=== PATIENT | male | born 1990 | race Caucasian/White ===

== ENCOUNTER 2023-04-29 16:37 | Emergency (ER) | payer OTHER, SELFPAY ==
[2023-04-29 16:44] VITALS: BP 145/75; PULSE 123; RESP 20; TEMP 37.2; O2SAT 100
--- NOTE | 2023-04-29 17:03 | ED.ABDPAIN ---
HPI - Abdominal Pain General Chief Complaint: Abdominal Pain Stated Complaint: Abdominal Pain Time Seen by Provider: 04/29/23 16:58 Source: patient, RN notes reviewed and old records reviewed Mode of arrival: ambulatory Limitations: no limitations History of Present Illness HPI narrative: 32 year old male accompanied by girlfriend with complaints of lower abdominal pain for the past 2 days. Patient reports that he has history of constipation in the past so he took a laxative and enema and had good results and felt better. He reports pain retuned this morning and has intensified throughout day. He reports about 1130 took laxative and enema with small amount of results but pain didn't resolve. Patient reports pain is more on the right lower abdomen with noted McBurney point tenderness on examination bowel sounds decreased. Patient has last eaten at 0900 and has had nausea but no vomiting small amount of diarrhea. MD elicited complaint: abdominal pain (RLQ) Pertinent past history: constipation Onset (ago): day(s) (2) Pain Consistency: colicky (constant since this morning) Location: RLQ Pain scale (0-10): 8 Treatments prior to arrival: other (laxatives and enema) Related Data Home Medications Medication Instructions Recorded Confirmed No Home Medications 04/29/23 04/29/23 Allergies Allergy/AdvReac Type Severity Reaction Status Date / Time No Known Allergies Allergy Verified 04/29/23 16:59 Review of Systems Review of Systems: CONSTITUTIONAL: fever, chills, or sweats. ENT: Denies rhinorrhea, congestion, sore throat, or otalgia. CARDIOVASCULAR: Denies chest pain, palpitations, or edema. RESPIRATORY: Denies cough or dyspnea. GASTROINTESTINAL: Reports right lower abdominal pain, nausea, no vomiting, reports some constipation and small amount of diarrhea but has taken laxatives GENITOURINARY: Denies dysuria or hematuria. SKIN: Denies rash or itching. MUSCULOSKELETAL: Denies back pain, joint pain, or myalgia. NEUROLOGIC: Denies headache, numbness, or weakness. All systems reviewed & are unremarkable except as noted in HPI and below PMFSH Past Medical History Medical History No active medical problems Surgical History Surgical History (Updated 04/30/23 @ 09:33 by TRACI Obregon) History of foot surgery Family History Family History Mother Asthma Hypertension Grandparent Cerebrovascular accident Diabetes mellitus Hypertension Father Hypertension Sibling Hypertension Social History Social History Smoking status: Never smoker Alcohol intake: never Substance use: never Lack of Transportation: No Lack of Food: Never True Current Housing: I Have Housing Concerned About Future Housing: No Difficulty Paying Gas/Electric Bills: No Difficulty Paying for Meds: No Currently Unemployed: No Education: High School Diploma/GED Difficulty w/ Childcare or Family Care: No Spiritual care concerns: No Comments At time of signature, agree with nursing past medical, surgical, social and family history. There is no relevant family history pertinent to the presenting complaint Exam Narrative: GENERAL: Well-appearing, well-nourished, and in some acute distress. HEAD: Normocephalic, atraumatic. EYES: PERRLA, conjunctivae clear, and EOMI. ENT: Nares clear. Mucous membranes moist. Oropharynx without edema, erythema, or lesions. Tonsils not enlarged and without exudate. NECK: Supple. No lymphadenopathy CHEST: Speaks in full sentences. No respiratory distress.SAO2 100% on room air HEART: Regular rate and rhythm. ABDOMEN: Soft, flat, distended. positive for guarding, rebound tenderness, no rigid. No pulsatilla masses. Bowel sounds decreased in all four quadrants. No organomegaly. Negative Cortés?s sign. No perium
== END 2023-04-29 17:18 | disposition short-term general hospital (02) ==
PROVIDERS: Emergency Provider Registered Nurse
DX: R10.31 Right lower quadrant pain (principal)
CPT/HCPCS: 99202; G0463

== ENCOUNTER 2023-04-29 17:59 | Inpatient (IN) | payer OTHER, SELFPAY ==
[2023-04-29] VITALS (8 sets, daily range): BP systolic 107–146; BP diastolic 55–82; PULSE 114–122; RESP 16–20; TEMP 37.9–38.4; O2SAT 97–100
--- NOTE | ~2023-04-29 | CT_ITS ---
EXAMINATION: CT abdomen pelvis w con DATE: 04/29/2023 20:22 INDICATION: Right lower quadrant abdominal pain. Fever. TECHNIQUE: Computed tomography (CT) of the abdomen and pelvis was performed with 100 mL Omnipaque 350 intravenous contrast. Automated exposure control and iterative reconstruction technique were employe d. The dose-length product was 764.57 mGy-cm. COMPARISON: None. FINDINGS: The visualized portions of the lung bases demonstrate mild atelectasis in right lower lobe. No pleural effusion. The heart size is normal. No pericardial effusion. The liver, gallbladder, sple en, pancreas, adrenal glands, and kidneys are normal. There are appendicoliths in the appendix, which is fluid-filled and dilated to 18 mm with surrounding fat stranding, consistent with appendicitis. T here is a small volume of ascites in the right paracolic gutter and in the pelvis. There are no patho logically enlarged lymph nodes. There is chronic anterior wedging of multiple vertebral bodies. There is mild thoracic and lumbar spondylosis. IMPRESSION: 1. Acute appendicitis. 2. Small volume of ascites. Reviewed, dictated and finalized at location E.
--- NOTE | 2023-04-29 19:25 | ED.ABDPAIN ---
HPI - Abdominal Pain General Chief Complaint: Abdominal Pain <Nila Lancaster PA-C - Last Filed: 04/29/23 21:11> Stated Complaint: RLQ pain <KAREN Silva Last Filed: 04/29/23 21:11> Time Seen by Provider: 04/29/23 19:19 <Nila Lancaster PA-C - Last Filed: 04/29/23 21:11> Source: patient <KAREN Silva Last Filed: 04/29/23 21:11> Mode of arrival: ambulatory <KAREN Silva Last Filed: 04/29/23 21:11> Limitations: no limitations <KAREN Silva Last Filed: 04/29/23 21:11> History of Present Illness HPI narrative: This is a 32-year-old male that presents to the emergency department with right lower quadrant abdominal pain. Reports starting on Saturday he was having some mid abdominal pain. This is now localized more to the right lower quadrant. Reports associated nausea. Reports he has been taking some laxatives so has had a little diarrhea. Noted to be febrile today. Denies vomiting, dysuria, or hematuria. <KAREN Silva Last Filed: 04/29/23 21:11> Related Data Allergies/Adverse Reactions: Allergies Allergy/AdvReac Type Severity Reaction Status Date / Time No Known Allergies Allergy Verified 04/29/23 16:59 <Nila Lancaster PA-C - Last Filed: 04/29/23 21:11> Review of Systems Review of Systems: CONSTITUTIONAL: Reports fever GASTROINTESTINAL: Reports abdominal pain, nausea, and diarrhea. Denies vomiting GENITOURINARY: Denies dysuria or hematuria. <KAREN Sliva Last Filed: 04/29/23 21:11> All systems reviewed & are unremarkable except as noted in HPI and below <Nila Lancaster PA-C - Last Filed: 04/29/23 21:11> PMFSH Past Medical History Medical History: Medical History No active medical problems <Nila Lancaster PA-C - Last Filed: 04/29/23 21:11> Surgical History Surgical History: Surgical History (Updated 04/30/23 @ 09:33 by TRACI Obregon) History of foot surgery <Nila Lancaster PA-C - Last Filed: 04/29/23 21:11> Family History Family History: Family History Mother Asthma Hypertension Grandparent Cerebrovascular accident Diabetes mellitus Hypertension Father Hypertension Sibling Hypertension <Nila Lancaster PA-C - Last Filed: 04/29/23 21:11> Social History Social History: Social History Smoking status: Never smoker Alcohol intake: never Substance use: never Lack of Transportation: No Lack of Food: Never True Current Housing: I Have Housing Concerned About Future Housing: No Difficulty Paying Gas/Electric Bills: No Difficulty Paying for Meds: No Currently Unemployed: No Education: High School Diploma/GED Difficulty w/ Childcare or Family Care: No Spiritual care concerns: No <Nila Lancaster PA-C - Last Filed: 04/29/23 21:11> Exam Narrative: GENERAL: Well-appearing, well-nourished, and in no acute distress. HEAD: Normocephalic, atraumatic. EYES: EOMI. CHEST: Clear to auscultation. No respiratory distress. No wheezes rales or rhonchi HEART: Regular rate and rhythm. No murmur heard. Normal peripheral pulses. ABDOMEN: Soft, nondistended, normal active bowel sounds. Tender to palpation in the right lower quadrant, without guarding. No CVA tenderness EXTREMITIES: Normal range of motion. No edema. SKIN: Warm, dry, no rash. NEURO: No focal deficits. Alert and oriented x3. PSYCH: Normal mood and affect <Nila Lancaster PA-C - Last Filed: 04/29/23 21:11> Course Course Emergency Course: Patient was updated on work-up and need for admission <Nila Lancaster PA-C - Last Filed: 04/29/23 21:11> INFECTION CONTROL PRACTITIONER/PA Physician Supervision For this patient encounter, I reviewed the INFECTION CONTROL PRACTITIONER or PA documentation, treatment plan, and medical decision making and
[2023-04-29] MEDS: SODIUM CHLORIDE 0.9% IV 1,000 ML 999 ML IV CONT ×3 (19:42→21:56)
[2023-04-29 19:51] LABS: Hematocrit 50.5 % (42.0-52.0); Hemoglobin 17.7 g/dL (14.0-18.0); Mean Corpuscular Hemoglobin 30.8 pg (26-34); Platelet Count Result 227 k/mm3 (150-375); Red Blood Count 5.74 M/mm3 (4.6-6.20); Red Cell Distribution Width 12.2 % (11.5-14.5); White Blood Count 21.9 K/mm3 (4.5-10.0)
[2023-04-29] MEDS: PIPERACILLN/TAZ 3.375GM/NS50ML 3.375 GM/50 ML BAG IVPB (20:03)
[2023-04-29 20:05] LABS: Alanine Aminotransferase 28 U/L (6-50); Albumin Level 4.9 g/dL (3.5-5.1); Alkaline Phosphatase 76 U/L (38-126); Anion Gap 12 mmol/L (8-16); Aspartate Amino Transferase 27 U/L (17-59); Bilirubin,Total 0.8 mg/dL (0.2-1.3); Blood Urea Nitrogen 17 mg/dL (9-20); Calcium 9.6 mg/dL (8.4-10.2); Carbon Dioxide 27 mmol/L (22-30); Chloride 98 mmol/L (98-107); Estimated CRCL calculation 109 ml/min; Estimated Glomerular Filt Rate > 60; Glucose 131 mg/dL (65-110); Lipase 104 U/L (23-300); Potassium 3.9 mmol/L (3.4-5.0); Sodium 137 mmol/L (137-145)
[2023-04-29 20:06] LABS: Lactic Acid Reflex 2.4 mmol/L (0.7-2.0)
[2023-04-29 20:27] LABS: Band Neutrophils Percent 1 % (0-6); Lymphocytes Absolute Manual 1.09 K/mm3 (1.1-4.5); Monocytes Absolute Manual 1.53 K/mm3 (0.1-0.90); Monocytes Percent Manual 7 % (3-9); Neutrophils Absolute Manual 19.27 K/mm3 (1.3-6.7); Neutrophils Percent Manual 87 % (46-73); Platelet Estimate Adequate (Adequate); Total Cells Counted 100
[2023-04-29 20:28] LABS: Schistocytes None Seen (NORMAL)
[2023-04-29] MEDS: IBUPROFEN IV 400 MG in SODIUM CHLORIDE 0.9% IV 100 ML 200 MG IVPB (20:34)
[2023-04-29 20:47] LABS: Appearance Urine Clear (Clear); Bacteria Urine None Seen /hpf; Bilirubin Urine 1+ (Negative); Color Urine Dark Yellow (Yellow); Glucose Urine UA Negative (Negative); Ketones Urine Trace mg/dL (Negative); Leukocyte Esterase Ur Trace LEU/UL (Negative); Nitrate Urine Negative (Negative); Non Pathogenic Casts 0-2; Protein Urine 1+ mg/dL (Negative); Specific Grav Ur 1.033 (1.001-1.035); Squamous Epithelial Cell Urine None seen /hpf (Few); Urobilinogen Urine 0.2 mg/dL (<2.0); WBC Urine 0-5 /hpf
[2023-04-29 20:57] LABS: Add Urine Microscopic? YES
[2023-04-29] MEDS: SODIUM CHLORIDE 0.9% IV 1,000 ML 125 ML IV CONT (22:00)
--- NOTE | 2023-04-29 22:15 | ADMGEN ---
This patient, Fritz Capone, was admitted to Medical Room 342-01. Patient/family oriented to hospital policies and general routines including ID bracelet, bed and alarms, visiting hours, pain management, procedures, bathroom and other care routines, personal items, smoking policy, room service/diet, and visiting hours. Information on how to activate the Rapid Response Team has been discussed. Patient/Family are encouraged to report perceived risks to care and to ask questions if they do not understand what they are told or what they should do.
[2023-04-29 22:48] LABS: Reflex Lactic Acid Yes or No Add Lactic
[2023-04-29 23:21] LABS: Lactic Acid 2.2 mmol/L (0.7-2.0)
[2023-04-30] VITALS (21 sets, daily range): BP systolic 106–154; BP diastolic 41–82; PULSE 95–128; RESP 14–20; TEMP 36.5–38.4; O2SAT 93–100
[2023-04-30] MEDS: PIPERACILLN/TAZ 3.375GM/NS50ML 3.375 GM/50 ML BAG IVPB ×4 (00:54→19:25)
[2023-04-30] MEDS: ACETAMINOPHEN 325 MG TABLET 650 MG PO (00:57)
[2023-04-30] MEDS: SODIUM CHLORIDE 0.9% IV 1,000 ML 125 ML IV CONT ×2 (05:07→18:15)
[2023-04-30] MEDS: IBUPROFEN IV 400 MG in SODIUM CHLORIDE 0.9% IV 100 ML 208 MG IVPB ×2 (05:12→20:04)
--- NOTE | 2023-04-30 09:28 | PM.IMHP ---
H&P: HPI History of Present Illness Date/Time: 04/30/23 09:28 Chief Complaint: Periumbilical abdominal pain Narrative: This is a 32-year-old man who presented to the ER last night with complaints of periumbilical abdominal pain for 3 days. He woke up with mild pain Saturday morning. Initially, he thought he was constipated. He typically deals with constipation and his pain improves after taking some laxatives and moving his bowels. He tried this and did not have any relief in his pain. His abdominal pain was aggravated by bending over and any movement. He developed some chills yesterday morning, but did not take his temperature. He also has had some mild nausea with poor appetite, but no vomiting. Last night, his abdominal pain began to localize to the right lower quadrant. He presented to the ER for further evaluation. Labs showed a white blood cell count 21,900. Lactic acid 2.[address] scan of the abdomen and pelvis showed acute appendicitis with small volume of ascites. He was found to be tachycardic and febrile. He was given 3 L of IV fluids for IV fluid resuscitation in the ER. Blood cultures were drawn and he was started on IV Zosyn. The patient was admitted to our service for surgical evaluation of acute appendicitis. His heart rate has improved. He has been given Tylenol and ibuprofen and is now afebrile this morning. No previous abdominal surgeries. Review of Systems Review of Systems: All systems reviewed & are unremarkable except as noted in HPI and below PMFSH Past Medical History Medical History No active medical problems Surgical History Surgical History (Updated 04/30/23 @ 09:33 by TRACI Obregon) History of foot surgery Family History Family History Mother Asthma Hypertension Grandparent Cerebrovascular accident Diabetes mellitus Hypertension Father Hypertension Sibling Hypertension Social History Social History Smoking status: Never smoker Alcohol intake: never Substance use: never Lack of Transportation: No Lack of Food: Never True Current Housing: I Have Housing Concerned About Future Housing: No Difficulty Paying Gas/Electric Bills: No Difficulty Paying for Meds: No Currently Unemployed: No Education: High School Diploma/GED Difficulty w/ Childcare or Family Care: No Spiritual care concerns: No Meds Home Medications and Allergies Home Medications Medication Instructions Recorded Confirmed Type No Home Medications 04/29/23 04/29/23 History Allergies Allergy/AdvReac Type Severity Reaction Status Date / Time No Known Allergies Allergy Verified 04/29/23 16:59 Vital Signs Vital Signs - 24 hr 04/29/23 19:03 04/29/23 19:15 04/29/23 19:16 Temperature 101.2 F H 100.8 F H Pulse Rate 122 H 120 H 121 H Respiratory Rate 18 17 16 Blood Pressure 121/67 142/82 H 145/82 H Pulse Oximetry 97 98 97 Oxygen Delivery Room Air Room Air 04/29/23 20:01 04/29/23 21:06 04/29/23 21:56 Temperature Pulse Rate 116 H 117 H 114 H Respiratory Rate 18 20 17 Blood Pressure 146/76 H 109/62 107/55 L Pulse Oximetry 100 100 98 Oxygen Delivery 04/29/23 22:24 04/29/23 22:12 04/29/23 23:11 Temperature 100.6 F H 100.3 F H Pulse Rate 121 H Respiratory Rate 18 Blood Pressure 118/55 L Pulse Oximetry 99 Oxygen Delivery Room Air 04/30/23 00:00 04/30/23 00:57 04/30/23 03:00 Temperature 100.3 F H Pulse Rate 128 H 119 H Respiratory Rate Blood Pressure Pulse Oximetry Oxygen Delivery 04/30/23 04:00 04/30/23 05:49 04/30/23 09:05 Temperature 99.5 F 98.6 F Pulse Rate 115 H 117 H 113 H Respiratory Rate 16 18 Blood Pressure 109/41 L 116/72 Pulse Oximetry 98 97 Oxygen Delivery Exam Const: General: comfortable, no
[2023-04-30 10:13] LABS: Hematocrit 42.8 % (42.0-52.0); Hemoglobin 14.4 g/dL (14.0-18.0); Mean Corpuscular HGB Conc 33.6 g/dl (32-36); Mean Corpuscular Hemoglobin 30.3 pg (26-34); Mean Corpuscular Volume 90.1 fl (80-100); Mean Platelet Volume 9.6 fl (7.4-10.4); Platelet Count Result 148 k/mm3 (150-375); Red Blood Count 4.75 M/mm3 (4.6-6.20); Red Cell Distribution Width 12.3 % (11.5-14.5); White Blood Count 21.1 K/mm3 (4.5-10.0)
[2023-04-30 10:22] LABS: Lactic Acid Reflex 1.2 mmol/L (0.7-2.0)
--- NOTE | 2023-04-30 11:55 | PC.NURSE ---
Patient transferred to pre-op via stretcher at 1155
--- NOTE | 2023-04-30 12:18 | WPDANESEPPF ---
Anes - Initial Pre Proc Eval Procedure: Operation Date: 04/30/23 13:00 Proposed Procedures p Laparoscopic Appendectomy - Dorie Cheema MD Date/Time: 04/30/23 12:18 Surgeon: Dorie Cheema MD Pre Op Diagnosis: Acute Appendicitis Patient Data Age: 32 Gender: M Height: 1.73 m Weight: 101.6 kg Last Vital Signs Temp 98.6 F 04/30/23 09:05 Pulse 113 H 04/30/23 09:05 Resp 18 04/30/23 09:05 BP 116/72 04/30/23 09:05 Pulse Ox 97 04/30/23 09:05 O2 Del Method Room Air 04/29/23 22:24 Allergies Allergy/AdvReac Type Severity Reaction Status Date / Time No Known Allergies Allergy Verified 04/29/23 16:59 Home Medications Medication Instructions Recorded Confirmed Type No Home Medications 04/29/23 04/29/23 History Laboratory Tests 04/29/23 04/29/23 04/29/23 19:42 20:00 23:01 WBC 21.9 H K/mm3 (4.5-10.0) RBC 5.74 M/mm3 (4.6-6.20) Hgb 17.7 g/dL (14.0-18.0) Hct 50.5 % (42.0-52.0) MCV 88.0 fl (80-100) MCH 30.8 pg (26-34) MCHC 35.0 g/dl (32-36) RDW 12.2 % (11.5-14.5) Plt Count 227 k/mm3 (150-375) MPV 10.0 fl (7.4-10.4) Immature Gran % (Auto) Not Reportable Neut % (Auto) Not Reportable Lymph % (Auto) Not Reportable Ballard % (Auto) Not Reportable Eos % (Auto) Not Reportable Baso % (Auto) Not Reportable Lymph # (Auto) Not Reportable Ballard # (Auto) Not Reportable Eos # (Auto) Not Reportable Baso # (Auto) Not Reportable Abs Immat Gran (auto) Not Reportable Absolute Neuts (auto) Not Reportable Absolute Nucleated RBC Not Reportable Total Counted 100 Neutrophils % (Manual) 87 H % (46-73) Band Neutrophils % 1 % (0-6) Lymphocytes % (Manual) 5.0 L % (18-44) Monocytes % (Manual) 7 % (3-9) Nucleated RBC % Not Reportable Abs Neuts (Manual) 19.27 H K/mm3 (1.3-6.7) Abs Lymphs (Manual) 1.09 L K/mm3 (1.1-4.5) Abs Monocytes (Manual) 1.53 H K/mm3 (0.1-0.90) Platelet Estimate Adequate (Adequate) Schistocytes None seen (NORMAL) Sodium 137 mmol/L (137-145) Potassium 3.9 mmol/L (3.4-5.0) Chloride 98 mmol/L (98-107) Carbon Dioxide 27 mmol/L (22-30) Anion Gap 12 mmol/L (8-16) BUN 17 mg/dL (9-20) Creatinine 1.00 mg/dL (0.7-1.3) Estim Creat Clear Calc 109 ml/min Estimated GFR > 60 (59 - ) Glucose 131 H mg/dL (65-110) Lactic Acid 2.4 H mmol/L 2.2 H mmol/L (0.7-2.0) (0.7-2.0) Calcium 9.6 mg/dL (8.4-10.2) Total Bilirubin 0.8 mg/dL (0.2-1.3) AST 27 U/L (17-59) ALT 28 U/L (6-50) Alkaline Phosphatase 76 U/L (38-126) Total Protein 9.0 H g/dL (6.3-8.2) Albumin 4.9 g/dL (3.5-5.1) Lipase 104 U/L (23-300) Urine Color Dark yellow (Yellow) Urine Appearance Clear (Clear) Urine pH 7.0 (5.0-9.0) Ur Specific [place] 1.033 (1.001-1.035) Urine Protein 1+ H mg/dL (Negative) Urine Glucose (UA) Negative mg/dL (Negative) Urine Ketones Trace H mg/dL (Negative) Ur Blood (Man) Non-hemolyzed trace (Negative) Urine Nitrate Negative (Negative) Urine Bilirubin 1+ H (Negative) Urine Urobilinogen 0.2 mg/dL (<2.0) Leukocyte Esterase Rfl Trace H SARAHI/UL (Negative) Urine RBC 11-20 H /hpf (0-2) Urine WBC 0-5 /hpf Ur Squamous Epith Cells None seen /hpf (Few) Urine Bacteria None seen /hpf Urine Casts 0-2 04/30/23
[2023-04-30] MEDS: LACTATED RINGERS 1,000 ML 30 ML IV CONT ×2 (12:40→14:23)
--- NOTE | 2023-04-30 13:10 | WPDHPUPDATE1 ---
History and Physical Update Update Date/Time: 04/30/23 13:10 History and Physical has been reviewed, including an updated exam of the patient. There are NO changes in the patient's condition. Risks, benefits, and alternatives have been discussed and questions answered. Patient agrees to proceed with procedure.
[2023-04-30] MEDS: BUPIVACAINE/EPINEPHRINE 0.5% 50 ML VIAL 30 ML INFILTRATE (13:54)
--- NOTE | 2023-04-30 14:41 | W.PM.PROC2 ---
Procedure Note - Detailed Date of Procedure 04/30/23 Pre-op Diagnosis Acute Appendicitis Post-op Diagnosis Other (acute perforated appendicitis) Procedure Performed Laparoscopic appendectomy, drainage of intra-abdominal abscess Surgeon Dorie Cheema MD Anesthesia General Indications 32-year-old male presenting to the emergency department complaining of severe right lower quadrant abdominal pain. Workup in the emergency department, including imaging, was significant for acute appendicitis. Findings Acute perforated appendicitis with transection of the appendix near the base, intra-abdominal abscess in right lower quadrant, fecalith noted within abscess Description of Procedure The patient was taken to the operating room and placed in the supine position. After adequate induction of general anesthesia, the patient was prepped and draped in the normal sterile fashion. A time-out was then done to verify the patient's identity, as well as the procedure being performed. I began by making a 5 mm incision in the infraumbilical region, through this a Veress needle was placed in the peritoneal cavity. CO2 gas was then insufflated and after adequate pneumoperitoneum was achieved the Veress needle was removed. Then placed a 5 mm Optiview trocar under direct visualization into the peritoneal cavity. I then insufflated through this trocar site and the endoscope was placed into the trocar. Under direct visualization, placed 2 further 5 mm suprapubic port as well as an additional 12 mm port in the left lower abdomen. At this point identified the cecum, I retracted the cecum both medially and superiorly allowing me to expose the appendix. The appendix was noted to be very dilated and inflamed with noted perforation, transection at the base. There was an associated abscess near this area that tracked down to the pelvis. There was also noted to be large fecalith within this area. I copiously irrigated and drained this intra-abdominal abscess. The appendix was noted to be very adherent to the right lateral sidewall as well as the ileum. I was able to bluntly dissect the appendix from these adhesions. I then transected the mesoappendix with a white vascular staple load. The appendiceal specimen was completely detached at this point. There was a lot of inflammation in the cecum and I was not able to clearly identify the area of the transection. Of note, there was no drainage of colonic contents. Given these findings, the decision was made to leave a drain in this area. An endo-pouch was placed through the 12 mm port site and the specimen was removed through the endo-pouch. The appendiceal specimen will be sent to pathology for further review. I then copiously irrigated the right lower quadrant. Hemostasis was noted at the staple line and no other pathology was seen in this area. I then moved the camera to the suprapubic port to check our its port of entry. No iatrogenic injury or other pathology was noted in the upper abdomen. I then placed a 19 Estonian ANTONETTE drain in the right lower quadrant coming through the suprapubic port. I then closed the 12 mm port site with a Darrell code and 0 Vicryl suture under direct visualization. At this point, the abdomen was desufflated and all ports were removed. All port sites were closed with 4 Monocryl subcuticular suture. Dermabond was placed on all wounds. The patient tolerated the procedure well and was extubated in the operating room postop. He will be sent to the recovery room in stable condition. Estimated Blood Loss 25 Drains Yes Packing No Pathology Yes Complications No immediate complications Condition Stable Disposition PACU [facility] Billing Surgery - Charge Forward: Surgery Billing
[2023-04-30] MEDS: fentaNYL CITRATE INJ (*CRX) 100 MCG/2 ML VIAL 25 MCG IV PUSH ×6 (14:54→15:39)
--- NOTE | 2023-04-30 15:52 | PC.NURSE ---
Patient returned to room from PACU. Family at bedside
[2023-04-30] MEDS: HYDROcodone/acetaminophen (*CRX) 5-325 MG TABLET 1 TAB PO ×2 (18:14→22:23)
[2023-05-01] VITALS (7 sets, daily range): BP systolic 101–136; BP diastolic 57–70; PULSE 83–124; RESP 14–18; TEMP 36.1–36.8; O2SAT 98–100
[2023-05-01] MEDS: SODIUM CHLORIDE 0.9% IV 1,000 ML 125 ML IV CONT (00:56)
[2023-05-01] MEDS: PIPERACILLN/TAZ 3.375GM/NS50ML 3.375 GM/50 ML BAG IVPB ×4 (00:59→20:24)
[2023-05-01] MEDS: IBUPROFEN IV 400 MG in SODIUM CHLORIDE 0.9% IV 100 ML 208 MG IVPB (02:02)
[2023-05-01] MEDS: HYDROcodone/acetaminophen (*CRX) 5-325 MG TABLET 1 TAB PO ×2 (05:22→11:16)
[2023-05-01 05:52] LABS: Hematocrit 37.5 % (42.0-52.0); Hemoglobin 12.1 g/dL (14.0-18.0); Mean Corpuscular HGB Conc 32.3 g/dl (32-36); Mean Corpuscular Hemoglobin 30.2 pg (26-34); Mean Corpuscular Volume 93.5 fl (80-100); Mean Platelet Volume 10.1 fl (7.4-10.4); Platelet Count Result 148 k/mm3 (150-375); Red Blood Count 4.01 M/mm3 (4.6-6.20); Red Cell Distribution Width 12.6 % (11.5-14.5)
[2023-05-01 06:28] LABS: Anion Gap 9 mmol/L (8-16); Blood Urea Nitrogen 15 mg/dL (9-20); Calcium 7.9 mg/dL (8.4-10.2); Carbon Dioxide 27 mmol/L (22-30); Chloride 101 mmol/L (98-107); Estimated CRCL calculation 119 ml/min; Estimated Glomerular Filt Rate > 60; Glucose 121 mg/dL (65-110); Potassium 3.5 mmol/L (3.4-5.0); Sodium 137 mmol/L (137-145)
[2023-05-01] MEDS: IBUPROFEN IV 400 MG in SODIUM CHLORIDE 0.9% IV 100 ML 200 MG IVPB ×2 (09:14→21:56)
--- NOTE | 2023-05-01 10:19 | WPDANESPN ---
Anes - Prog Note Post-Op Date/Time: 05/01/23 10:19 Cardiovascular status: normal Respiratory status: normal Airway patency: baseline Mental status: baseline Post-Op hydration status: normal Vital Signs: Last Vital Signs Temp 97.7 F 05/01/23 04:00 Pulse 90 05/01/23 08:00 Resp 14 05/01/23 08:00 BP 101/58 L 05/01/23 04:00 Pulse Ox 98 05/01/23 08:00 O2 Del Method Room Air 05/01/23 08:00 O2 Flow Rate 6 04/30/23 15:05 Pain Score (VAS): 0 I/O: Intake & Output 04/30/23 05/01/23 05/01/23 23:59 07:59 15:59 Intake Total 394 2354 Output Total 125 505 Balance 269 1999 Laboratory Tests 05/01/23 05:17 05/01/23 05:17 04/30/23 05/01/23 10:07 05:17 WBC 21.1 H 17.0 H RBC 4.75 4.01 L Hgb 14.4 D 12.1 L Hct 42.8 37.5 L MCV 90.1 93.5 MCH 30.3 30.2 MCHC 33.6 32.3 RDW 12.3 12.6 Plt Count 148 L 148 L MPV 9.6 10.1 Sodium 137 Potassium 3.5 Chloride 101 Carbon Dioxide 27 Anion Gap 9 BUN 15 Creatinine 0.90 Estim Creat Clear Calc 119 Estimated GFR > 60 Glucose 121 H Lactic Acid 1.2 Calcium 7.9 L Microbiology 04/29/23 20:00 Blood Blood Culture - Preliminary Gram positive cocci cluster is 04/29/23 19:42 Blood Blood Culture - Preliminary Post-procedural complaints: none Patient Feedback: Patient satisfied with anesthetic care.
--- NOTE | 2023-05-01 14:54 | PM.PNGS ---
Progress Note: A&P Assessment and Plan (1) Acute appendicitis: Qualifiers: Acute appendicitis type: with localized peritonitis Appendicitis abscess presence: without abscess Appendicitis gangrene presence: without gangrene Appendicitis perforation presence: without perforation Qualified Code(s): K35.30 - Acute appendicitis with localized peritonitis, without perforation or gangrene Code(s): K35.80 - Unspecified acute appendicitis Status: Acute Assessment and Plan: S/p laparoscopic appendectomy, drainage of intra-abdominal abscess Continue IV Zosyn, WBC trending down to 17k today, repeat labs tomorrow Tolerating a regular diet Encouraged getting up to the chair and ambulating in the halls (2) Sepsis: Qualifiers: Sepsis acute organ dysfunction status: without acute organ dysfunction Sepsis type: sepsis due to unspecified organism Qualified Code(s): A41.9 - Sepsis, unspecified organism Code(s): A41.9 - Sepsis, unspecified organism Status: Acute Assessment and Plan: Tachycardia resolved, afebrile for over 24 hours, WBC trending down Preliminary blood cx showing gram positive cocci in clusters in 1/2 bottles. Consulted with the ID Pharmacist, will continue IV Zosyn for now and repeat blood cultures today, possibly a contaminant. Repeat labs tomorrow Plan I have discussed the patient's case and plan of care with Dr. Cheema. Subjective Subjective Date/Time Seen: 05/01/23 14:54 Post Op day: 1 (Laparoscopic appendectomy, drainage of intra-abdominal abscess) Patient reports: no flatus, no bowel movement and afebrile (Since noon yesterday) Interval history: Patient seen this afternoon. He is standing in the room. He reports feeling well throughout the day and ambulating in the halls multiple times today. He recently started having more lower abdominal pain then he has been having the rest the day. He reports this feels more like gas pains. Denies any nausea or vomiting. Feels very bloated. He is not passing flatus. Exam Const: General: comfortable, no acute distress and awake Orientation/consciousness: patient oriented x3 Resp: Effort & Inspection: normal respiratory effort Auscultation: clear to auscultation bilaterally Cardio: Rate: regular rate Rhythm: regular rhythm GI: Inspection: non-distended and incision (incisions dry and intact) GI Palp: Yes Soft to palpation and Yes Tenderness to palpation present (GI) (incisional, right lower quadrant) Auscultation: normal bowel sounds Other: ANTONETTE drain with minimal cloudy serosanguineous drainage, removed gauze dressing which was saturated with similar drainage, the suture around the drain was completely loose with the drain pulled out at least 5-[address] Cheema and notified him and he requested I remove the drain. ANTONETTE drain was then removed at the bedside. Neuro: General: moves all extremities and no focal motor deficits Extrem: General: no calf tenderness and no edema Psych: Mental Status: mental status grossly normal Insight: Good insight present (Psych) Objective Data Vital Signs Vital Signs: Vital Signs - 24 hr 04/30/23 15:05 04/30/23 15:20 04/30/23 15:35 Temperature Pulse Rate 106 H 106 H 106 H Respiratory Rate 16 16 16 Blood Pressure 128/69 141/72 H 154/56 H Pulse Oximetry 99 99 93 Oxygen Delivery Simple Face Mask Room Air Room Air Oxygen Flow Rate 6 04/30/23 15:44 04/30/23 16:25 04/30/23 16:00 Temperature 97.7 F Pulse Rate 106 H 98 105 H Respiratory Rate 16 18 Blood Pressure 145/82 H 120/63 Pulse Oximetry 94 96 Oxygen Delivery Room Air Oxygen Flow Rate 04/30/23 17:10 04/30/23 16:40 04/30/23 20:00 Temperature 98.0 F 98.8 F Pulse Rate 98 95 112 H Respiratory Rate 16 18 Blood Pressure 119/60 117/62 Pulse Oximetry 98 96 Oxygen Delivery Oxygen Flow Rate 04/30/23 20:00 05/01/23 00:00 05/01/23 00:00 Temperature 98.8 F 97.9 F Pulse R
[2023-05-01] MEDS: CALCIUM CARBONATE (TUMS) 500 MG (200 MG ELEMENTAL) PO (15:05)
[2023-05-01] MEDS: SODIUM CHLORIDE 0.9% IV 1,000 ML 75 ML IV CONT (17:00)
[2023-05-02] VITALS: PULSE 98
[2023-05-02] MEDS: PIPERACILLN/TAZ 3.375GM/NS50ML 3.375 GM/50 ML BAG IVPB ×2 (01:34→08:21)
[2023-05-02 04:00] VITALS: PULSE 90
[2023-05-02 05:54] LABS: Hematocrit 32.1 % (42.0-52.0); Hemoglobin 10.8 g/dL (14.0-18.0); Mean Corpuscular HGB Conc 33.6 g/dl (32-36); Mean Corpuscular Hemoglobin 30.3 pg (26-34); Mean Corpuscular Volume 90.2 fl (80-100); Mean Platelet Volume 10.1 fl (7.4-10.4); Platelet Count Result 148 k/mm3 (150-375); Red Blood Count 3.56 M/mm3 (4.6-6.20); Red Cell Distribution Width 12.4 % (11.5-14.5); White Blood Count 11.5 K/mm3 (4.5-10.0)
[2023-05-02 06:00] VITALS: BP 127/68; PULSE 102; RESP 20; TEMP 35.9; O2SAT 96
[2023-05-02 06:27] LABS: Anion Gap 5 mmol/L (8-16); Blood Urea Nitrogen 11 mg/dL (9-20); Calcium 8.2 mg/dL (8.4-10.2); Carbon Dioxide 28 mmol/L (22-30); Chloride 103 mmol/L (98-107); Estimated CRCL calculation 119 ml/min; Estimated Glomerular Filt Rate > 60; Glucose 101 mg/dL (65-110); Potassium 3.3 mmol/L (3.4-5.0); Sodium 136 mmol/L (137-145)
[2023-05-02 08:00] VITALS: PULSE 102; RESP 20; O2SAT 96
[2023-05-02] MEDS: SODIUM CHLORIDE 0.9% IV 1,000 ML 75 ML IV CONT (08:21)
[2023-05-02] MEDS: POTASSIUM CHLORIDE 20 MEQ ER TABLET 40 MEQ PO (08:46)
[2023-05-02] MEDS: HYDROcodone/acetaminophen (*CRX) 5-325 MG TABLET 1 TAB PO (08:46)
--- NOTE | 2023-05-02 10:21 | PM.PNGS ---
Progress Note: A&P Assessment and Plan (1) Acute appendicitis: Qualifiers: Acute appendicitis type: with localized peritonitis Appendicitis abscess presence: without abscess Appendicitis gangrene presence: without gangrene Appendicitis perforation presence: without perforation Qualified Code(s): K35.30 - Acute appendicitis with localized peritonitis, without perforation or gangrene Code(s): K35.80 - Unspecified acute appendicitis Status: Acute Assessment and Plan: POD#2 from laparoscopic appendectomy, drainage of intra-abdominal abscess Continue IV Zosyn, WBC continues to trend down to 11k today. Blood cx will help determine abx course and when to transition to orals. Tolerating a regular diet Encouraged getting up to the chair and ambulating in the halls (2) Sepsis: Qualifiers: Sepsis acute organ dysfunction status: without acute organ dysfunction Sepsis type: sepsis due to unspecified organism Qualified Code(s): A41.9 - Sepsis, unspecified organism Code(s): A41.9 - Sepsis, unspecified organism Status: Acute Assessment and Plan: Tachycardia overall improved. Remains afebrile Preliminary blood cx showing gram positive cocci in clusters in 1/2 bottles. Repeat blood cx pending. Continue IV Zosyn. If initial blood cx grow coag negative staph, then we could consider discharge and transitioning to oral antibiotics as this was likely a contaminate. Plan I have discussed the patient's case and plan of care with Dr. Cheema. Subjective Subjective Date/Time Seen: 05/02/23 09:21 Patient reports: feels better, pain is less, tolerating a regular diet, voiding w/o difficulty, flatus, bowel movement (multiple BMs overnight) and afebrile (since noon on 04/30) Interval history: Patient feeling better today. Reports his gas pains resolved after passing lots of flatus yesterday evening. He then moved his bowels multiple times. This morning his pain is much better and now just dealing with incisional pain. No fevers overnight. Tachycardia continues to improve. Eating more today. Exam Const: General: comfortable, no acute distress and awake Orientation/consciousness: patient oriented x3 Resp: Effort & Inspection: normal respiratory effort Auscultation: clear to auscultation bilaterally Cardio: Rate: regular rate Rhythm: regular rhythm GI: Inspection: non-distended, incision (incisions dry and intact) and other (ANTONETTE dressing dry and intact) GI Palp: Yes Soft to palpation, Yes Tenderness to palpation present (GI) (incisional) and No Guarding due to palpation present (GI) Auscultation: normal bowel sounds Neuro: General: moves all extremities Extrem: General: no calf tenderness and no edema Psych: Mental Status: mental status grossly normal Insight: Good insight present (Psych) Objective Data Vital Signs Vital Signs: Vital Signs - 24 hr 05/01/23 14:00 05/01/23 16:00 05/01/23 21:04 Temperature 98.2 F 96.9 F L Pulse Rate 96 103 H 114 H Respiratory Rate 18 18 Blood Pressure 136/67 125/70 Pulse Oximetry 100 100 05/01/23 20:00 05/02/23 00:00 05/02/23 04:00 Temperature Pulse Rate 124 H 98 90 Respiratory Rate Blood Pressure Pulse Oximetry 05/02/23 06:00 Temperature 96.6 F L Pulse Rate 102 H Respiratory Rate 20 Blood Pressure 127/68 Pulse Oximetry 96 Intake/Output Intake/Output: Intake & Output 04/29/23 04/30/23 05/01/23 05/02/23 23:59 23:59 23:59 23:59 Intake Total 1154 2948 4692 1840 Output Total 600 625 4946 Balance 1154 2823 2252 540 Meds/Results Medications: Active Medications Generic Name Dose Route Start Last Admin Trade Name Freq PRN Reason Stop Dose Admin Acetaminophen 650 mg 04/29/23 20:48 04/30/23 00:57 Acetaminophen 325 Mg Tablet PO 650 mg Q4H PRN Administration Mild Pain (1-3) or Fever Hydrocodone Bitart/Acetaminophen 1 tab 04/30/23 17:34 05/02/23 08:46 Hydrocodone/Acetaminophe
--- NOTE | 2023-05-02 14:12 | PM.DS ---
DS: Admitting Diagnosis Discharge Date 05/02/2023 Admitting Diagnosis Acute appendicitis Sepsis DS: Discharge Diagnosis Discharge Diagnosis (1) Acute appendicitis: Qualifiers: Acute appendicitis type: with localized peritonitis Appendicitis abscess presence: without abscess Appendicitis gangrene presence: without gangrene Appendicitis perforation presence: without perforation Qualified Code(s): K35.30 - Acute appendicitis with localized peritonitis, without perforation or gangrene Code(s): K35.80 - Unspecified acute appendicitis Status: Acute (2) Sepsis: Qualifiers: Sepsis acute organ dysfunction status: without acute organ dysfunction Sepsis type: sepsis due to unspecified organism Qualified Code(s): A41.9 - Sepsis, unspecified organism Code(s): A41.9 - Sepsis, unspecified organism Status: Acute DS: Summary Hospital Course Reason for hospitalization: This is a 32-year-old man who presented to the ER with complaints of periumbilical abdominal pain for 3 days. Workup in the ED showed CT evidence of acute appendicitis. He also met sepsis criteria, and was admitted for surgical evaluation. Hospital Course: He received 3 L of IV fluids in this ER for fluid resuscitation. He was started on broad-spectrum IV antibiotics and maintenance IV fluids. He was evaluated and decision was made to proceed with surgery. He was taken to the OR on 04/30/2023 and underwent a laparoscopic appendectomy, drainage of intra-abdominal abscess. He had findings of an acute perforated appendix with transection of the appendix near the base and an intra-abdominal abscess in the right lower quadrant. ANTONETTE drain was left in place and he was kept overnight on IV antibiotics. Labs were monitored and his leukocytosis improved over the next few days. He initially had blood cultures drawn in the ER that grew gram positive cocci in clusters from 1/2 bottles. We consulted with the ID pharmacist for recommendations, and decided to continue the IV Zosyn and repeat blood cultures on postop day 1. The initial blood cultures grew out a coag-negative staphylococcus, which is likely a contaminant. Discussed again with ID pharmacist today. We will continue to treat the acute appendicitis and transition to oral antibiotics on discharge. His ANTONETTE drain was removed postop day 1, as the suture was loose in the ANTONETTE drain pulled out some accidentally prior to my evaluation. Recommended by Dr. Cheema that the ANTONETTE drain get removed that day. Postop day 2 he was feeling much better. Bowel function had returned. He is tolerating a regular diet. He has been afebrile for over 24 hours. His white blood cell count is down to 11,000 today from 21,000 on admission. Second set of blood cultures are pending and can be followed as an outpatient. Status at Discharge Functional status at discharge: independent ambulation Overall status at discharge: patient is progressing back to baseline Time Spent with Patient Time attestation: Total time spent providing and/or coordinating discharge services: Time spent: Less than 30 minutes DS: Data Data Completed and Pending Completed studies during hospitalization: Pending at discharge 04/30/23 14:00 Surgical [PTH] Routine Labs on day of discharge: Labs from last 24 hours 05/02/23 05:22 WBC 11.5 H RBC 3.56 L Hgb 10.8 L Hct 32.1 L MCV 90.2 MCH 30.3 MCHC 33.6 RDW 12.4 Plt Count 148 L MPV 10.1 Sodium 136 L Potassium 3.3 L Chloride 103 Carbon Dioxide 28 Anion Gap 5 L BUN 11 Creatinine 0.90 Estim Creat Clear Calc 119 Estimated GFR > 60 Glucose 101 Calcium 8.2 L Preliminary micro results at discharge 05/01/23 16:07 Blood Culture - Preliminary Blood 05/01/23 16:07 Blood Culture - Preliminary Blood 04/29/23 20:00 Blood Culture - Preliminary Blood Staphylococcus epidermidis 04/29/23 19:42 Blood Culture - Preliminary Blood Imaging
== END 2023-05-02 15:02 | disposition home or self-care (01) | DRG 853 ==
LOC: ANHED 21:09 → ANH3MED 21:53
PROVIDERS: Admitting Provider Surgery; Emergency Provider Physician Assistant; Visit Provider Nurse Practitioner Family
PROC: 0DTJ4ZZ Resection of Appendix, Percutaneous Endoscopic Approach (ICD-10-PCS; CPT 44970; principal; 2023-04-30 13:00)
DX: A41.9 Sepsis, unspecified organism (principal); K35.33 Acute appendicitis with perforation, localized peritonitis, and gangrene, with abscess; B95.7 Other staphylococcus as the cause of diseases classified elsewhere; Z28.21 Immunization not carried out because of patient refusal
CPT/HCPCS: 36415; 74177; 80048; 80053; 81001; 83605; 83690; 85025; 85027; 87040; 87077; 87186; 88304; 96365; 96367; 99285; A9270; G0378; J1100; J1741; J2250; J2405; J2543; J2704; J3010; J7030; J7120; Q9967

== ENCOUNTER 2023-05-14 15:52 | Inpatient (IN) | payer OTHER, SELFPAY ==
--- NOTE | ~2023-05-14 | CT_ITS ---
EXAMINATION: CT guide absc cath placement DATE: 05/15/2023 12:23 INDICATION: Periappendiceal abscess TECHNIQUE: The procedure including the risks and benefits was discussed with the patient. Risks discu ssed included bleeding and infection. The patient understood the risks and benefits and agreed to pro ceed. The patient was confirmed to be receiving appropriate antibiotic coverage. The skin overlying the lateral right lower quadrant was prepped and draped in usual sterile fashion. Conscious sedation was provided with 50 mcg fentanyl IV. Anesthetic was administered with 1% lidocaine subcutaneously. A n 18-gauge trochar needle was inserted into the right lower quadrant peritoneal fluid collection by t rocar technique utilizing CT guidance. The inner needle was removed and a J-wire advanced into the fl uid collection with position confirmed by CT. Utilizing Seldinger technique the needle was removed ov er the wire, the tract serially dilated to 10 Rw[place]an and a 10 Rwandan pigtail catheter placed over the wire. The loop was formed and locked with position confirmed by CT. The wire was removed and the cat heter was stitched to the skin with suture. Antibiotic ointment and a sterile dressing were applied a long with an additional adhesive fixation device. 45 mL of foul-smelling oblique 10-colored fluid was aspirated and sent to lab for Gram stain and cultures. The catheter was then attached to suction chucho inage and was draining additional fluid at the conclusion of the procedure. There were no immediate c omplications. The dose-length product was 173.56 mGy-cm. FINDINGS: CT images demonstrate the catheter within the small right lower quadrant peritoneal abscess . 45 mL fluid was aspirated for testing. IMPRESSION: 1. Successful CT-guided right lower quadrant abscess drainage. The catheter will be managed by Dr. Mayte vieira. 2. 45 mL fluid was sent for aerobic and anaerobic cultures. Reviewed, dictated and finalized at location A. IMPRESSION: 1. Successful CT-guided right lower quadrant abscess drainage. The catheter clau l be managed by Dr. Yeh. 2. 45 mL fluid was sent for aerobic and anaerobic cultures.
--- NOTE | ~2023-05-14 | XR_ITS ---
EXAMINATION: XR chest 2V DATE: 05/14/2023 16:34 INDICATION: Cough and fever TECHNIQUE: PA and lateral views of the chest were obtained. COMPARISON: Chest radiograph dated 02/06/2007 FINDINGS: A couple calcified nodules in the left upper and right upper lung zones consistent with old granuloma tous disease. No other airspace opacities, pulmonary edema, pleural effusion or pneumothorax. The car diomediastinal silhouette is normal. Lower thoracic kyphosis with chronic mild anterior wedging of a few lower thoracic vertebral bodies. Moderate thoracic spondylosis. IMPRESSION: 1. No acute cardiopulmonary disease. Reviewed, dictated and finalized at location A.
--- NOTE | ~2023-05-14 | CT_ITS ---
EXAMINATION: CT abdomen pelvis w con DATE: 05/14/2023 16:55 INDICATION: Abdominal pain. Fever. TECHNIQUE: Computed tomography (CT) of the abdomen and pelvis was performed with 100 mL Omnipaque 350 intravenous contrast. Automated exposure control and iterative reconstruction technique were employe d. The dose-length product was 814.29 mGy-cm. COMPARISON: CT abdomen and pelvis 04/29/2023 FINDINGS: The visualized portions of the lung bases demonstrate mild atelectasis. A calcified left kourtney ng nodule is consistent with old granulomatous disease. No pleural effusion. The heart size is normal . No pericardial effusion. The liver, gallbladder, spleen, the pancreas, adrenal glands, and kidneys are normal. There are no dilated loops of bowel. There are surgical changes in the periappendiceal re gion. There is an 8.5 x 6.0 x 4.2 cm periappendiceal abscess. There is a 14 x 7 mm abscess inferior t o the cecum. There are no pathologically enlarged lymph nodes. There is trace pelvic ascites. There i s mild chronic anterior wedging of multiple vertebral bodies. There is mild thoracolumbar spondylosis . IMPRESSION: 1. 8.5 x 6.0 x 4.2 cm periappendiceal abscess. Consider CT-guided abscess drainage. Reviewed, dictated and finalized at location E. IMPRESSION: 1. 8.5 x 6.0 x 4.2 cm periappendiceal abscess. Consider CT-guided abscess drain age.
[2023-05-14 15:55] VITALS: BP 145/76; PULSE 114; RESP 20; TEMP 36.8; O2SAT 99
[2023-05-14 16:15] LABS: Basophils Absolute Auto 0.1 K/mm3 (0.0-0.1); Basophils Percent Auto 0.4 % (0.2-1.2); Eosinophils Percent Auto 0.1 % (0-4.4); Hematocrit 41.7 % (42.0-52.0); Hemoglobin 13.7 g/dL (14.0-18.0); Immature Granulocyte Absolute 0.17 K/mm3 (0.00-0.031); Immature Granulocyte Percent A 0.8 % (0-0.5); Lymphocytes Absolute Auto 1.71 K/mm3 (0.9-3.2); Lymphocytes Percent Auto 7.9 % (18.3-44.2); Mean Corpuscular HGB Conc 32.9 g/dl (32-36); Mean Corpuscular Hemoglobin 29.4 pg (26-34); Mean Corpuscular Volume 89.5 fl (80-100); Mean Platelet Volume 9.2 fl (7.4-10.4); Monocytes Absolute Auto 1.3 K/mm3 (0.1-0.6); Monocytes Percent Auto 6.2 % (2.6-8.5); Neutrophils Absolute Auto 18.3 K/mm3 (1.3-6.7); Neutrophils Percent Auto 84.6 % (45.5-73.1); Platelet Count Result 353 k/mm3 (150-375); Red Blood Count 4.66 M/mm3 (4.6-6.20); Red Cell Distribution Width 11.9 % (11.5-14.5); White Blood Count 21.6 K/mm3 (4.5-10.0)
[2023-05-14 16:18] VITALS: RESP 18
[2023-05-14 16:20] VITALS: TEMP 37.6
--- NOTE | 2023-05-14 16:24 | ED.FEVER ---
HPI - Fever General Chief Complaint: Fever <KAREN Acosta Last Filed: 05/14/23 16:30> Stated Complaint: fever, recent appendix removal 04/30 <KAREN Acosta Last Filed: 05/14/23 16:30> Time Seen by Provider: 05/14/23 16:46 <KAREN Acosta Last Filed: 05/14/23 16:30> Source: patient <KAREN Acosta Last Filed: 05/14/23 16:30> Mode of arrival: ambulatory <KAREN Acosta Last Filed: 05/14/23 16:30> Limitations: no limitations <KAREN Acosta Last Filed: 05/14/23 16:30> History of Present Illness HPI Narrative: Patient is a 32-year-old male who presents to the ED with report of fever and abdominal pain. Patient underwent laparoscopic appendectomy on 04/[address] Cheema. He finished his antibiotics last , but reports over the weekend he began feeling ill with fevers, chills, fatigue, weakness. He talked to Dr. Cheema's office yesterday and was prescribed an additional course of Augmentin. He has taken 2 doses of this so far, however his temperature has been up to 102.5 ?F today. He also complains of worsening pain in his right lower abdomen. He does also report having occasional cough, congestion, rhinorrhea. Denies chest pain, shortness of breath, nausea, vomiting, diarrhea, constipation. Patient last took ibuprofen at 2:30 PM. <KAREN Acosta Last Filed: 05/14/23 16:30> Related Data Allergies/Adverse Reactions: Allergies Allergy/AdvReac Type Severity Reaction Status Date / Time No Known Allergies Allergy Verified 05/14/23 16:35 <KAREN Acosta Last Filed: 05/14/23 16:30> Review of Systems Review of Systems: CONSTITUTIONAL: See HPI. ENT: See HPI. CARDIOVASCULAR: Denies chest pain. RESPIRATORY: See HPI. GASTROINTESTINAL: See HPI. GENITOURINARY: Denies dysuria or hematuria. SKIN: Denies rash or itching. MUSCULOSKELETAL: Denies back pain, joint pain, or myalgia. <Theresa Shabazz PA-C - Last Filed: 05/14/23 16:30> All systems reviewed & are unremarkable except as noted in HPI and below <Theresa Shabazz PA-C - Last Filed: 05/14/23 16:30> PMFSH Past Medical History Medical History: Medical History No active medical problems <Theresa Shabazz PA-C - Last Filed: 05/14/23 16:30> Surgical History Surgical History: Surgical History History of foot surgery <Theresa Shabazz PA-C - Last Filed: 05/14/23 16:30> Family History Family History: Family History Mother Asthma Hypertension Grandparent Cerebrovascular accident Diabetes mellitus Hypertension Father Hypertension Sibling Hypertension <Theresa Shabazz PA-C - Last Filed: 05/14/23 16:30> Social History Social History: Social History Smoking status: Never smoker Alcohol intake: never Substance use: never Lack of Transportation: No Lack of Food: Never True Current Housing: I Have Housing Concerned About Future Housing: No Difficulty Paying Gas/Electric Bills: No Difficulty Paying for Meds: No Currently Unemployed: No Education: High School Diploma/GED Difficulty w/ Childcare or Family Care: No Spiritual care concerns: No <Theresa Shabazz PA-C - Last Filed: 05/14/23 16:30> Exam Narrative: GENERAL: Mildly ill and flushed appearing, obese with BMI of 32.7, non-toxic, in no acute distress. HEAD: Normocephalic, atraumatic. NECK: Supple. No adenopathy, no masses. RESPIRATORY: Airway patent, respirations nonlabored. Clear to auscultation bilaterally, no rales, rhonchi, wheezing. No significant focal lung sounds. CARDIOVASCULAR: Tachycardic with regular rhythm without
[2023-05-14 16:25] LABS: Alanine Aminotransferase 46 U/L (6-50); Albumin Level 4.2 g/dL (3.5-5.1); Alkaline Phosphatase 125 U/L (38-126); Anion Gap 10 mmol/L (8-16); Aspartate Amino Transferase 33 U/L (17-59); Bilirubin,Total 0.9 mg/dL (0.2-1.3); Blood Urea Nitrogen 13 mg/dL (9-20); Calcium 8.9 mg/dL (8.4-10.2); Carbon Dioxide 27 mmol/L (22-30); Chloride 96 mmol/L (98-107); Estimated CRCL calculation 131 ml/min; Estimated Glomerular Filt Rate > 60; Glucose 113 mg/dL (65-110); Lipase 86 U/L (23-300); Potassium 4.2 mmol/L (3.4-5.0); Sodium 133 mmol/L (137-145)
[2023-05-14 16:26] LABS: Lactic Acid Reflex 0.9 mmol/L (0.7-2.0)
[2023-05-14] MEDS: ACETAMINOPHEN 500 MG TABLET 1000 MG PO (16:33)
[2023-05-14 16:40] LABS: Appearance Urine Clear (Clear); Bacteria Urine None Seen /hpf; Bilirubin Urine Negative (Negative); Blood Urine 1+ (Negative); Color Urine Yellow (Yellow); Glucose Urine UA Negative (Negative); Ketones Urine Trace mg/dL (Negative); Leukocyte Esterase Ur Negative LEU/UL (Negative); Nitrate Urine Negative (Negative); Non Pathogenic Casts 0-2; Protein Urine 1+ mg/dL (Negative); Specific Grav Ur 1.019 (1.001-1.035); Squamous Epithelial Cell Urine None seen /hpf (Few); Urobilinogen Urine 0.2 mg/dL (<2.0); WBC Urine 0-5 /hpf; pH Urine 6.5 (5.0-9.0)
[2023-05-14 16:49] LABS: Add Urine Microscopic? YES
[2023-05-14 17:17] LABS: Influenza A QL RT-PCR Negative (Negative); Influenza B QL RT-PCR Negative (Negative); SARS-CoV-2 RNA PCR Negative (Negative)
[2023-05-14] MEDS: PIPERACILLN/TAZ 3.375GM/NS50ML 3.375 GM/50 ML BAG IVPB (17:49)
[2023-05-14] MEDS: LACTATED RINGERS 1,000 ML 999 ML IV CONT (17:49)
[2023-05-14 18:19] VITALS: BP 119/69; PULSE 86; RESP 18; TEMP 36.8; O2SAT 100
--- NOTE | 2023-05-14 18:32 | ADMGEN ---
This patient, Fritz Capone, was admitted to 2 Medical Room 242-. Patient/family oriented to hospital policies and general routines including ID bracelet, bed and alarms, visiting hours, pain management, procedures, bathroom and other care routines, personal items, smoking policy, room service/diet, and visiting hours. Information on how to activate the Rapid Response Team has been discussed. Patient/Family are encouraged to report perceived risks to care and to ask questions if they do not understand what they are told or what they should do.
[2023-05-14 18:40] VITALS: BP 123/72; PULSE 96; RESP 18; TEMP 37.1; O2SAT 98
[2023-05-14 20:42] VITALS: BP 120/63; PULSE 99; RESP 20; TEMP 36.1; O2SAT 98
[2023-05-14 20:45] VITALS: BMI 32.1
[2023-05-15] VITALS (12 sets, daily range): BP systolic 116–141; BP diastolic 58–81; PULSE 99–116; RESP 18–24; TEMP 36.2–37.7; O2SAT 93–100
[2023-05-15] MEDS: ACETAMINOPHEN 500 MG TABLET 1000 MG PO ×3 (01:36→17:11)
[2023-05-15 08:06] LABS: Mean Platelet Volume 9.2 fl (7.4-10.4); Platelet Count Result 333 k/mm3 (150-375)
[2023-05-15] MEDS: LACTATED RINGERS 1,000 ML 100 ML IV CONT ×2 (08:11→21:17)
[2023-05-15] MEDS: PIPERACILLN/TAZ 3.375GM/NS50ML 3.375 GM/50 ML BAG IVPB ×4 (08:11→23:36)
[2023-05-15 08:20] LABS: INR 1.1; Partial Thromboplastin Time 34.1 SECONDS (22.3-36.8); Prothrombin Time 14.6 Seconds (11.1-14.7)
--- NOTE | 2023-05-15 09:03 | PM.IMHP ---
H&P: HPI History of Present Illness Date/Time: 05/15/23 09:03 Chief Complaint: Fever Narrative: This is a 32-year-old man who is known to our service for a recent hospitalization for acute perforated appendicitis. He was treated with IV antibiotics and had a laparoscopic appendectomy, drainage of intra-abdominal abscess on 04/30/[address] Cheema. He was discharged on postop day 2 and transitioned to oral antibiotics. He was given Augmentin for an additional 7 days. He reports taking them as prescribed and completing the antibiotics last night. While on the antibiotics, he felt like he was improving. He was tolerating a diet well. His bowels were moving normally. His incisional pain had nearly resolved. He still had some mild RLQ abdominal pain only with movement or bending, but thought this was still improving. Over the weekend, after stopping the antibiotics, he developed chills on Saturday. Two days ago, he developed a fever with a temperature of 101F. He reports speaking with our office and being restarted on oral antibiotics. He took ibuprofen for his fever, which helped. Yesterday, he became febrile again up to 102.7F and he decided to come into the ER for further evaluation. Labs were significant for a WBC count of 21,600. He was tachycardic in the ER with a heart rate 114, temperature 99.7F, and otherwise normal vital signs. Lactic acid normal 0.9. CT abdomen pelvis showed an 8.5 x 6.0 x 4.2 cm periappendiceal abscess and a tiny 14 x 7 mm abscess inferior to the cecum. He was admitted to our service. He is now seen on the medical floor. He was started on IV Zosyn and IV fluids. He received a 1 liter IV fluid bolus in the ER. Tachycardia has improved. He is comfortable and denies any abdominal pain at rest. No other specific complaints at this time. Review of Systems Review of Systems: All systems reviewed & are unremarkable except as noted in HPI and below PMFSH Past Medical History Medical History No active medical problems Surgical History Surgical History History of foot surgery History of laparoscopic appendectomy 04/30/23 Family History Family History Mother Asthma Hypertension Grandparent Cerebrovascular accident Diabetes mellitus Hypertension Father Hypertension Sibling Hypertension Social History Social History Smoking status: Never smoker Alcohol intake: never Substance use: never Substance use type: does not use Lack of Transportation: No Lack of Food: Never True Current Housing: I Have Housing Concerned About Future Housing: No Difficulty Paying Gas/Electric Bills: No Difficulty Paying for Meds: No Currently Unemployed: No Education: High School Diploma/GED Difficulty w/ Childcare or Family Care: No Spiritual care concerns: No Meds Home Medications and Allergies Home Medications Medication Instructions Recorded Confirmed Type hydrocodone 5 mg-acetaminophen 325 1 tablet PO Q4-6H PRN Pain Rated 05/02/23 05/14/23 Rx mg tablet 4-6 #15 tabs amoxicillin 875 mg-potassium 1 tablet PO Q12H #15 tabs 05/13/23 05/14/23 Rx clavulanate 125 mg tablet Allergies Allergy/AdvReac Type Severity Reaction Status Date / Time morphine Allergy Mild Other Verified 05/14/23 18:48 Vital Signs Vital Signs - 24 hr 05/14/23 15:55 05/14/23 16:18 05/14/23 16:20 Temperature 98.2 F 99.7 F H Pulse Rate 114 H Respiratory Rate 20 18 Blood Pressure 145/76 H Pulse Oximetry 99 Oxygen Delivery Room Air 05/14/23 18:19 05/14/23 18:40 05/14/23 20:00 Temperature 98.2 F 98.8 F Pulse Rate 86 96 Respiratory Rate 18 18 Blood Pressure 119/69 123/72 Pulse Oximetry 100 98 Oxygen Delivery Room Air 05/14/23 20:42 05/15/23 03:15 05/15/23 0
--- NOTE | 2023-05-15 11:29 | WPDMODSED ---
Moderate Sedation Note-Pt Data Patient Data Diagnosis: RLQ abscess post appendectomy Present Complaint: RLQ pain and fever Procedure to be performed/Plan: percutaneous abscess drain placement Allergies Allergy/AdvReac Type Severity Reaction Status Date / Time morphine Allergy Mild Other Verified 05/14/23 18:48 Home Medications Medication Instructions Recorded Confirmed Type hydrocodone 5 mg-acetaminophen 325 1 tablet PO Q4-6H PRN Pain Rated 05/02/23 05/14/23 Rx mg tablet 4-6 #15 tabs amoxicillin 875 mg-potassium 1 tablet PO Q12H #15 tabs 05/13/23 05/14/23 Rx clavulanate 125 mg tablet Current Medications: Active Medications Acetaminophen (Acetaminophen 500 Mg Tablet) 1,000 mg PO Q6H PRN PRN Reason: Mild Pain (1-3) or Fever Last Admin: 05/15/23 08:20 Dose: 1,000 mg Piperacillin/Tazobactam/Dextrose (Zosyn 3.375 Gm/Ns 50 Ml) 3.375 gm in 50 mls @ 100 mls/hr IVPB Q6HR VISHAL Last Admin: 05/15/23 08:11 Dose: 100 mls/hr Lactated Ringer's (Lr - Lactated Ringers Iv) 1,000 mls @ 100 mls/hr IV CONT .Q10H VISHAL Last Admin: 05/15/23 08:11 Dose: 100 mls/hr Morphine Sulfate (Morphine Sulfate (*Crx) 4 Mg/Ml Inj) 4 mg IV PUSH Q2H PRN PRN Reason: Pain Rated 7-10 Sedation/Anesthesia: No previous sedation/anesthesia problems (including family history). [facility] Past Medical History Medical History No active medical problems Surgical History Surgical History History of foot surgery History of laparoscopic appendectomy 04/30/23 Family History Family History Mother Asthma Hypertension Grandparent Cerebrovascular accident Diabetes mellitus Hypertension Father Hypertension Sibling Hypertension Social History Social History Smoking status: Never smoker Alcohol intake: never Substance use: never Substance use type: does not use Lack of Transportation: No Lack of Food: Never True Current Housing: I Have Housing Concerned About Future Housing: No Difficulty Paying Gas/Electric Bills: No Difficulty Paying for Meds: No Currently Unemployed: No Education: High School Diploma/GED Difficulty w/ Childcare or Family Care: No Spiritual care concerns: No Mod Sed Physical Exam Physical Exam Pre Procedural Exam: Normal: Appearance, Eyes, Neck, Throat, Lungs, Heart Rate and Heart Rhythm and Variation: Abdomen (TTP RLQ with surgical dressing) Hours since solid foods: 15 Hours since liquid intake: 5 Mallampati Classification: class II Internal Medicine - PN: Obj Da Vital Signs Vital Signs: Vital Signs - 24 hr 05/14/23 15:55 05/14/23 16:18 05/14/23 16:20 Temperature 98.2 F 99.7 F H Pulse Rate 114 H Respiratory Rate 20 18 Blood Pressure 145/76 H Pulse Oximetry 99 Oxygen Delivery Room Air 05/14/23 18:19 05/14/23 18:40 05/14/23 20:00 Temperature 98.2 F 98.8 F Pulse Rate 86 96 Respiratory Rate 18 18 Blood Pressure 119/69 123/72 Pulse Oximetry 100 98 Oxygen Delivery Room Air 05/14/23 20:42 05/15/23 03:15 05/15/23 08:35 Temperature 97.0 F L 97.2 F L Pulse Rate 99 105 H Respiratory Rate 20 18 Blood Pressure 120/63 123/58 L Pulse Oximetry 98 96 93 Oxygen Delivery Room Air 05/15/23 08:00 Temperature Pulse Rate Respiratory Rate Blood Pressure Pulse Oximetry Oxygen Delivery Room Air Intake/Output Intake/Output: Intake & Output 05/12/23 05/13/23 05/14/23 05/15/23 23:59 23:59 23:59 23:59 Intake Total 1050 390 Output Total 300 Balance 1050 90 Meds/Results Medications: Active Medications Generic Name Dose Route Start Last Admin Trade Name Freq PRN Reason Stop Dose Admin Acetaminophen 1,000 mg 05/15/23 01:01 05/15/23 08:20 Acetaminophen 500 Mg Tablet PO 1,000 mg Q6
[2023-05-16 05:21] VITALS: BP 121/52; PULSE 101; RESP 18; TEMP 37.1; O2SAT 97
[2023-05-16] MEDS: PIPERACILLN/TAZ 3.375GM/NS50ML 3.375 GM/50 ML BAG IVPB (05:26)
[2023-05-16 05:39] LABS: Hematocrit 34.4 % (42.0-52.0); Hemoglobin 11.3 g/dL (14.0-18.0); Mean Corpuscular HGB Conc 32.8 g/dl (32-36); Mean Corpuscular Hemoglobin 29.8 pg (26-34); Mean Corpuscular Volume 90.8 fl (80-100); Mean Platelet Volume 9.5 fl (7.4-10.4); Platelet Count Result 329 k/mm3 (150-375); Red Blood Count 3.79 M/mm3 (4.6-6.20); White Blood Count 14.6 K/mm3 (4.5-10.0)
[2023-05-16 05:59] LABS: Anion Gap 5 mmol/L (8-16); Blood Urea Nitrogen 13 mg/dL (9-20); Calcium 8.4 mg/dL (8.4-10.2); Carbon Dioxide 31 mmol/L (22-30); Chloride 98 mmol/L (98-107); Estimated CRCL calculation 116 ml/min; Estimated Glomerular Filt Rate > 60; Glucose 112 mg/dL (65-110); Potassium 3.9 mmol/L (3.4-5.0); Sodium 134 mmol/L (137-145)
--- NOTE | 2023-05-16 06:50 | PC.NURSE ---
On 05/16/23, the student,Eloy Quiles, provided care and completed [facility] documentation on this patient. I have reviewed the student's documentation and agree with the findings.
--- NOTE | 2023-05-16 08:09 | PM.DS ---
DS: Admitting Diagnosis Discharge Date 05/16/2023 Admitting Diagnosis Intra-abdominal abscess, perforated appendicitis DS: Discharge Diagnosis Discharge Diagnosis (1) Abscess, periappendiceal: Code(s): K35.33 - Acute appendicitis with perforation, localized peritonitis, and gangrene, with abscess Status: Acute Assessment and Plan: status post percutaneous drainage, home with drain care and antibiotics, plan to get repeat CT next week and possibly remove drain in office DS: Summary Hospital Course Reason for hospitalization: right lower quadrant intra-abdominal abscess Hospital Course: The patient is a 32-year-old male status post appendectomy for perforated appendicitis. The patient initially did well and was subsequently discharged home with p.o. antibiotics. Over the course about a week the patient mild fevers, mild abdominal pain, weakness. The patient re-presented to the emergency department and imaging, exam consistent with right lower quadrant abscess. The patient admitted to the surgical service and started on IV antibiotics. The following day the patient had percutaneous drainage of his right lower quadrant abscess. The patient now feels much improved and exam is completely benign. He has been tolerating a regular diet and having normal bowel function. The patient will be discharged home with drain care and antibiotics. Plan is for him to be reimaged next week and possibly have drain removed in the office. Status at Discharge Functional status at discharge: independent ambulation Overall status at discharge: patient is progressing back to baseline Time Spent with Patient Time attestation: Total time spent providing and/or coordinating discharge services: Time spent: Less than 30 minutes Exam Const: General: cooperative, comfortable and no acute distress Resp: Auscultation: clear to auscultation bilaterally Cardio: Rate: regular rate Rhythm: regular rhythm GI: Inspection: normal to inspection GI Palp: No abdominal tenderness, Yes Soft to palpation, No Tenderness to palpation present (GI), No Guarding due to palpation present (GI) and No Rigid due to palpation Other: RLQ drain - mod thin purulent dc DS: Data Data Completed and Pending Labs on day of discharge: Labs from last 24 hours 05/16/23 05/15/23 05:02 07:57 WBC 14.6 H RBC 3.79 L Hgb 11.3 L Hct 34.4 L MCV 90.8 MCH 29.8 MCHC 32.8 RDW 12.0 Plt Count 329 MPV 9.5 PT 14.6 INR 1.1 APTT 34.1 Sodium 134 L Potassium 3.9 Chloride 98 Carbon Dioxide 31 H Anion Gap 5 L BUN 13 Creatinine 0.90 Estim Creat Clear Calc 116 Estimated GFR > 60 Glucose 112 H Calcium 8.4 Preliminary micro results at discharge 05/14/23 17:43 Blood Culture - Preliminary Blood 05/14/23 17:43 Blood Culture - Preliminary Blood Discharge Plan Discharge Attending physician on discharge: Dorie Cheema Consulting providers: Buck Ayala; Theresa Shabazz Discharging Clinician: Dorie Cheema Anticipated Discharge Date/Time: 05/16/23 13:00 Patient Disposition: Home, Self-Care Activity: no shower and as tolerated Diet: as tolerated Patient Instructions: Antibiotic Form, Pain Management (GEN) Stand Alone Forms: General Discharge Information Follow-up/Referrals: Dorie Cheema MD [Physician] - 1 Week Discharge Medications: New ciprofloxacin HCl [Cipro] 500 mg tablet 500 mg PO Q12H Qty: 20 0RF metronidazole [Flagyl] 375 mg capsule 375 mg PO Q12H Qty: 20 0RF Continued hydrocodone-acetaminophen 5-325 mg Tablet 1 tablet PO Q4-6H PRN (Reason: Pain Rated 4-6) Qty: 15 0RF Discontinued amoxicillin-pot clavulanate 875-125 mg tablet 1 tablet PO Q12H Qty: 15 0RF Date of admission: 05/14/23 17:20 Primary Care Provider: PHYSICIAN,EDUCATION PROGRAM SPECIALIST Admitting Provider: Blanco Yeh Attending physician on admission: Ksenia Yeh
[2023-05-16] MEDS: ACETAMINOPHEN 500 MG TABLET 1000 MG PO (08:50)
== END 2023-05-16 11:10 | disposition home or self-care (01) | DRG 862 ==
LOC: ANHED 17:48 → ANH2MED 18:55
PROVIDERS: Nurse Practitioner Family; Physician Assistant; Radiology Diagnostic Radiology; Admitting Provider Surgery; Emergency Provider Emergency Medicine; Visit Provider Surgery
PROC: 0W9G30Z Drainage of Peritoneal Cavity with Drainage Device, Percutaneous Approach (ICD-10-PCS; CPT 75989; principal; 2023-05-15 11:30)
DX: T81.43XA Infection following a procedure, organ and space surgical site, initial encounter (principal); K35.33 Acute appendicitis with perforation, localized peritonitis, and gangrene, with abscess; T81.44XA Sepsis following a procedure, initial encounter; Z90.49 Acquired absence of other specified parts of digestive tract; Z20.822 Contact with and (suspected) exposure to COVID-19
CPT/HCPCS: 36415; 71046; 74177; 75989; 80048; 80053; 81001; 83605; 83690; 85025; 85027; 85049; 85610; 85730; 87040; 87070; 87075; 87076; 87077; 87205; 87636; 99285; A9270; C1729; J2543; J3010; J7040; J7120; Q9967

== ENCOUNTER 2023-05-22 13:43 | Outpatient (CLI) | payer OTHER, SELFPAY ==
--- NOTE | ~2023-05-22 | CT_ITS ---
CT of the Abdomen and Pelvis: Indication: Peritoneal abscess Technique: 2.5 mm axial scans were obtained through the abdomen and pelvis following intravenous adm inistration of 100 cc of Omnipaque 350. Dose reduction technique was used on this scan by utilizing a utomated exposure control and iterative reconstruction technique. The dose-length product (DLP) was 8 75.33 mGy-cm. COMPARISON: 05/14/2023 Findings: Scans through the lung bases are unremarkable. The liver, spleen, pancreas, gallbladder, adrenals and kidneys are within normal limits. No evidence of aortic aneurysm. No lymphadenopathy. Percutaneous drainage catheter is now present the right lower quadrant. Previously noted abscess is e ssentially completely resolved, with mild inflammatory change present about the pigtail catheter, but no significant residual fluid collection. No bowel obstruction. Images through the pelvis were performed. Urinary bladder unremarkable. Prostate gland and seminal ve sicles are unremarkable. No ascites. Impression: Status post percutaneous drainage of right lower quadrant abscess, which is essentially completely re solved. There is mild inflammatory change about the pigtail catheter, but no significant residual flu id collection. Correlate with tube output. Reviewed, dictated and finalized at location M. Impression: Status post percutaneous drainage of right lower quadrant abscess, which is ess entially completely resolved. There is mild inflammatory change about the pigta il catheter, but no significant residual fluid collection. Correlate with tube output.
== END 2023-05-22 13:44 | disposition home or self-care (01) ==
PROVIDERS: Visit Provider Surgery
DX: K65.1 Peritoneal abscess (principal)
CPT/HCPCS: 74177; Q9967